=== PATIENT | female | born 1945 | race Caucasian/White ===

== ENCOUNTER 2020-04-01 11:18 | Emergency (ER) | payer MEDICARE, BC ==
[~2020-04-01] VITALS: Ht 162.6 cm; Wt 67.0 kg
[2020-04-01] MEDS ORDERED: HYDROcodone/acetaminophen 5mg/325mg tablet PO ONE (14:00)
[2020-04-01] MEDS ORDERED: ondansetron 4mg rapidly disintigrating tab PO ONE (14:00)
[2020-04-01 14:23] VITALS: BP 111/67
== END 2020-04-01 14:13 | disposition home or self-care (01) ==
LOC: ER 11:19
DX: S42.294A Other nondisplaced fracture of upper end of right humerus, initial encounter for closed fracture (principal); E78.00 Pure hypercholesterolemia, unspecified; W01.0XXA Fall on same level from slipping, tripping and stumbling without subsequent striking against object, initial encounter; Y93.89 Activity, other specified; Y92.89 Other specified places as the place of occurrence of the external cause; Y99.9 Unspecified external cause status
CPT/HCPCS: 73030; 73060; 99284